=== PATIENT | female | born 1965 | race Hispanic/Latino ===

== ENCOUNTER 2022-06-30 15:23 | Emergency (ER) | payer OTHER, SELFPAY ==
--- NOTE | ~2022-06-30 | CT_ITS ---
EXAMINATION: CT abdomen pelvis w con DATE: 06/30/2022 21:05 INDICATION: RUQ abdominal pain TECHNIQUE: Computed tomography (CT) of the abdomen and pelvis was performed with 100 mL Omnipaque-350 intravenous contrast. Automated exposure control and iterative reconstruction technique were employe d. The dose-length product was 747.64 mGy-cm. COMPARISON: None. FINDINGS: Lower thorax: Unremarkable Liver: Subcentimeter hypodensities that are too small to characterize. Biliary/Gallbladder: Gallbladder is normal. No bile duct dilation. Pancreas: No mass or duct dilation. Spleen: Normal. Adrenals:No mass. Kidneys: Bilateral patchy parenchymal enhancement. Bilateral perinephric stranding and periureteral s tranding. No suspicious mass. No obstructing calculus. GI tract: Mild distal esophageal and gastric wall edema as can be seen with esophagitis/gastritis. No small or large bowel dilation. Normal appendix. Diverticulosis without diverticulitis. Mesentery/Peritoneum: No ascites, mass, or free air. Retroperitoneum: No mass. Atherosclerotic abdominal aortic and/or arterial calcifications. Pelvis: Mild urinary bladder wall thickening. Soft Tissues: Soft tissues and body wall unremarkable. Bones: No acute osseous finding. IMPRESSION: Cystitis with ascending infection and bilateral pyelonephritis. Reviewed, dictated and finalized at location [facility]
[2022-06-30 15:27] VITALS: BP 132/81; PULSE 107; RESP 18; TEMP 37; O2SAT 100
[2022-06-30 17:07] LABS: Basophils Percent Auto 0.3 % (0.2-1.2); Hematocrit 43.4 % (37.0-47.0); Hemoglobin 14.2 g/dL (12.0-15.0); Immature Granulocyte Absolute 0.06 K/mm3 (0.00-0.031); Immature Granulocyte Percent A 0.4 % (0-0.5); Lymphocytes Percent Auto 9.3 % (18.3-44.2); Mean Corpuscular HGB Conc 32.7 g/dl (32-36); Mean Corpuscular Hemoglobin 26.8 pg (26-34); Mean Platelet Volume 9.8 fl (7.4-10.4); Monocytes Absolute Auto 0.9 K/mm3 (0.1-0.6); Monocytes Percent Auto 6.5 % (2.6-8.5); Neutrophils Absolute Auto 11.7 K/mm3 (1.3-6.7); Neutrophils Percent Auto 83.5 % (45.5-73.1); Platelet Count Result 299 k/mm3 (150-375); Red Blood Count 5.29 M/mm3 (4.2-5.4); Red Cell Distribution Width 13.9 % (11.5-14.5)
[2022-06-30 17:20] LABS: Alanine Aminotransferase 94 U/L (6-35); Albumin Level 4.5 g/dL (3.5-5.1); Alkaline Phosphatase 99 U/L (38-126); Anion Gap 16 mmol/L (8-16); Aspartate Amino Transferase 92 U/L (14-36); Bilirubin,Total 0.6 mg/dL (0.2-1.3); Blood Urea Nitrogen 15 mg/dL (7-17); Calcium 9.4 mg/dL (8.4-10.2); Carbon Dioxide 22 mmol/L (22-30); Chloride 95 mmol/L (98-107); Estimated CRCL calculation 79 ml/min; Estimated Glomerular Filt Rate > 60; Glucose 126 mg/dL (65-110); Lipase 44 U/L (23-300); Potassium 4.1 mmol/L (3.4-5.0); Sodium 133 mmol/L (137-145)
--- NOTE | 2022-06-30 20:27 | ED.ABDPAIN ---
HPI - Abdominal Pain General Chief Complaint: Abdominal Pain Stated Complaint: abd pain, fever Time Seen by Provider: 06/30/22 20:18 History of Present Illness HPI narrative: This is a 56-year-old female with past medical history of hypertension and diabetes, presenting the emergency complaining of abdominal pain and fever and chills for the past 4 days. She states pain is dull aggravated by food, alleviated by nothing, beginning in the general abdomen, radiating to the pelvis and worse with pressure to the right upper quadrant. She denies vomiting, diarrhea or bleeding from any source. She has no other complaints today. Related Data Home Medications Medication Instructions Recorded Confirmed cholecalciferol (vitamin D3) 50 50 mcg PO DAILY 06/27/22 mcg (2,000 unit) capsule dapagliflozin 10 mg-metformin ER 1 tablet PO DAILY 06/27/22 1,000 mg tablet,extended release 24hr ezetimibe 10 mg tablet 10 mg PO DAILY 06/27/22 icosapent ethyl 1 gram capsule 2 g PO BID 06/27/22 iron, carbonyl 15 mg chewable 15 mg PO DAILY 06/27/22 tablet rosuvastatin 40 mg tablet 40 mg PO DAILY 06/27/22 semaglutide 0.25 mg or 0.5 mg (2 0.25 mg subcut WEEKLY 06/27/22 mg/1.5 mL) subcutaneous pen injector sertraline 50 mg tablet 50 mg PO DAILY 06/27/22 Allergies Allergy/AdvReac Type Severity Reaction Status Date / Time dulaglutide [From [facility] [address]] Allergy Unknown Verified 06/27/22 08:42 insect venom Allergy Unknown Verified 06/27/22 08:42 Review of Systems Review of Systems: CONSTITUTIONAL: fever, chills, Denies sweats. EYES: Denies visual changes, redness, or discharge. ENT: Denies rhinorrhea, congestion, sore throat, or otalgia. CARDIOVASCULAR: Denies chest pain, palpitations, or edema. RESPIRATORY: Denies cough or dyspnea. GASTROINTESTINAL: Abdominal pain denies nausea, vomiting, or diarrhea. GENITOURINARY: Denies dysuria or hematuria. SKIN: Denies rash or itching. MUSCULOSKELETAL: Denies back pain, joint pain, or myalgia. NEUROLOGIC: Denies headache, numbness, dizziness, or weakness. PSYCHIATRIC: Denies anxiety or depression. 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 HEAD: Normocephalic, atraumatic. EYES: PERRLA and EOMI. ENT: Nares clear, no rhinorrhea or epistaxis. Mucous membranes moist. Oropharynx without tonsillar hypertrophy exudate or other lesions. NECK: Supple. No adenopathy or masses. No carotid bruits or JVD CHEST: Clear to auscultation. No respiratory distress. No wheezes rales or rhonchi HEART: Regular rate and rhythm. No murmur heard. Normal peripheral pulses. ABDOMEN: Soft, tender to palpation in the right upper quadrant without rebound or mass, nondistended, normal active bowel sounds. EXTREMITIES: Normal range of motion. No edema. SKIN: Warm, dry, no rash. NEURO: No foca
[2022-06-30 20:48] VITALS: BP 126/82; PULSE 96; RESP 16; TEMP 36.8
[2022-06-30] MEDS: FAMOTIDINE 20 MG/2 ML VIAL IV PUSH (20:51)
[2022-06-30] MEDS: SODIUM CHLORIDE 0.9% IV 1,000 ML 999 ML IV CONT (20:51)
[2022-06-30 21:05] LABS: Appearance Urine Cloudy (Clear); Bilirubin Urine 1+ (Negative); Blood Urine 2+ (Negative); Color Urine Yellow (Yellow); Glucose Urine UA 3+ mg/dL (Negative); Ketones Urine 3+ mg/dL (Negative); Leukocyte Esterase Ur Trace LEU/UL (Negative); Nitrate Urine Negative (Negative); Protein Urine 3+ mg/dL (Negative); Urobilinogen Urine 0.2 mg/dL (<2.0); pH Urine 5.5 (5.0-9.0)
[2022-06-30 21:23] LABS: Bacteria Urine Trace /hpf; Mucus Urine Rare /lpf; Squamous Epithelial Cell Urine Rare /hpf (Few); WBC Urine >75 /hpf
[2022-06-30 21:25] LABS: Add Urine Microscopic? YES
[2022-06-30 21:30] VITALS: BP 117/72; PULSE 93; RESP 16; TEMP 36.8; O2SAT 95
[2022-06-30 22:30] VITALS: BP 112/69; PULSE 91; RESP 16; TEMP 36.7; O2SAT 100
[2022-06-30] MEDS: cefTRIAXone 2 GM in SODIUM CHLORIDE 0.9% IV 100 ML 200 ML IVPB (22:34)
== END 2022-06-30 23:03 | disposition home or self-care (01) ==
PROVIDERS: Family Medicine; Emergency Provider Preventive Medicine Aerospace Medicine; PCP Family Medicine
DX: N12 Tubulo-interstitial nephritis, not specified as acute or chronic (principal); I10 Essential (primary) hypertension; E11.9 Type 2 diabetes mellitus without complications; E78.5 Hyperlipidemia, unspecified; G47.33 Obstructive sleep apnea (adult) (pediatric); H33.021 Retinal detachment with multiple breaks, right eye; H43.813 Vitreous degeneration, bilateral; Z90.710 Acquired absence of both cervix and uterus; Z79.84 Long term (current) use of oral hypoglycemic drugs; N30.90 Cystitis, unspecified without hematuria
CPT/HCPCS: 36415; 74177; 80053; 81001; 83690; 85025; 87077; 87086; 87186; 96361; 96365; 96367; 96375; 99284; J0131; J0696; J7030; Q9967

== ENCOUNTER 2024-03-09 05:53 | Day surgery (SDC) | payer OTHER, SELFPAY ==
[2024-01-21 09:48] VITALS: BMI 34.4
[2024-02-29 08:32] VITALS: BMI 34.2
[2024-03-09 06:25] VITALS: BP 109/78; PULSE 78; RESP 15; TEMP 36.8; O2SAT 97; BMI 34.4
[2024-03-09 06:46] LABS: Glucose Point of Care 113 mg/dl (65-105)
[2024-03-09] MEDS: LACTATED RINGERS 1,000 ML 150 ML IV CONT (06:46)
--- NOTE | 2024-03-09 07:09 | WPDANESEPPF ---
Anes - Initial Pre Proc Eval Procedure: Operation Date: 03/09/24 07:30 Proposed Procedures p Esophagogastroduodenoscopy - Jose Irizarry MD Date/Time: 03/09/24 07:09 Surgeon: Jose Irizarry MD Pre Op Diagnosis: GERD w/o esophagitis, nausea Patient Data Age: 58 Gender: F Height: 1.57 m Weight: 85.3 kg Last Vital Signs Temp 36.8 C 03/09/24 06:25 Pulse 78 03/09/24 06:25 Resp 15 03/09/24 06:25 BP 109/78 03/09/24 06:25 Pulse Ox 97 03/09/24 06:25 O2 Del Method Room Air 03/09/24 06:25 Allergies Allergy/AdvReac Type Severity Reaction Status Date / Time dulaglutide [From [facility]] Allergy Rash Verified 03/09/24 06:23 insect venom Allergy Rash Verified 03/09/24 06:23 Home Medications Medication Instructions Recorded Confirmed Type cholecalciferol (vitamin D3) 50 50 mcg PO DAILY 06/27/22 03/09/24 History mcg (2,000 unit) capsule ezetimibe 10 mg tablet 10 mg PO DAILY 06/27/22 03/09/24 History icosapent ethyl 1 gram capsule 2 g PO BID 06/27/22 03/09/24 History rosuvastatin 40 mg tablet 40 mg PO DAILY 06/27/22 03/09/24 History metformin 1,000 mg tablet 1,000 mg PO DAILY 10/29/22 03/09/24 History pantoprazole 40 mg tablet,delayed 40 mg PO QAM #30 tabs 01/20/24 03/09/24 Rx release tirzepatide 5 mg/0.5 mL 5 mg subcut WEEKLY 02/29/24 03/09/24 History subcutaneous pen injector (Mounjaro) Laboratory Tests 03/09/24 06:39 POC Capillary Glucose 113 H mg/dl (65-105) Patient hx anesthesia problems: none Family hx anesthesia problems: none Results Review: All pre-operative results and documents have been reviewed as part of the pre-operative evaluation. 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 Sensorineural hearing loss of both ears Type 2 diabetes mellitus Vitreous degeneration of both eyes Surgical History Surgical History H/O breast biopsy H/O: hysterectomy Family History Family History Mother Hypertension Sleep apnea Hyperlipidemia Osteoporosis Coronary artery disease Dementia Father Malignant neoplasm of prostate Diabetes mellitus Social History Social History Smoking status: Never smoker Alcohol intake: current Alcohol use details: social Substance use: never Substance use type: does not use Living arrangements: with family Spiritual care concerns: No Anes - Eval Final PreProcedure Day of Procedure 03/09/24 07:09 Patient weight: obese Heart: regular rate and rhythm Lungs: clear to auscultation Airway: Mallampati scale class II Neurological: alert and oriented Last oral intake: >/= 8 hours ASA classification: III Emergent: no Anesthetic plan: proceed Anesthesia type and monitoring: general GIVS and standard monitoring Results Review: All pre-operative results and documents have been reviewed as part of the pre-operative evaluation. Informed Consent: The patient's anesthetic plan and its attendant risks and benefits were discussed with the patient/family/POA. Questions were solicited and answers provided to the satisfaction of the patient/family/POA.
--- NOTE | 2024-03-09 07:13 | PM.HPGS ---
History of Present Illness History of Present Illness Consent: Risks, benefits, and alternatives have been discussed and questions answered. Patient agrees to proceed with procedure. Chief complaint: GERD w/o esophagitis, nausea Narrative: Silvana Ross is a 58 year old female referred for EGD. Patient complains of ongoing throat pain. She also has had ear pain. ENT evaluation was unremarkable. Previous trial of pantoprazole was of no benefit. Over the last several months she has had some regurgitation. This again was given pantoprazole with some improvement of symptoms. She Has not taken this medication for the last 3 weeks however. Patient referred today for EGD because of the discomfort. 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 Sensorineural hearing loss of both ears Type 2 diabetes mellitus Vitreous degeneration of both eyes Surgical History Surgical History H/O breast biopsy H/O: hysterectomy Family History Family History Mother Hypertension Sleep apnea Hyperlipidemia Osteoporosis Coronary artery disease Dementia Father Malignant neoplasm of prostate Diabetes mellitus Social History Social History Smoking status: Never smoker Alcohol intake: current Alcohol use details: social Substance use: never Substance use type: does not use Living arrangements: with family Spiritual care concerns: No Meds Home Medications and Allergies Home Medications Medication Instructions Recorded Confirmed Type cholecalciferol (vitamin D3) 50 50 mcg PO DAILY 06/27/22 03/09/24 History mcg (2,000 unit) capsule ezetimibe 10 mg tablet 10 mg PO DAILY 06/27/22 03/09/24 History icosapent ethyl 1 gram capsule 2 g PO BID 06/27/22 03/09/24 History rosuvastatin 40 mg tablet 40 mg PO DAILY 06/27/22 03/09/24 History metformin 1,000 mg tablet 1,000 mg PO DAILY 10/29/22 03/09/24 History pantoprazole 40 mg tablet,delayed 40 mg PO QAM #30 tabs 01/20/24 03/09/24 Rx release tirzepatide 5 mg/0.5 mL 5 mg subcut WEEKLY 02/29/24 03/09/24 History subcutaneous pen injector (Eva) Allergies Allergy/AdvReac Type Severity Reaction Status Date / Time dulaglutide [From [facility]] Allergy Rash Verified 03/09/24 06:23 insect venom Allergy Rash Verified 03/09/24 06:23 Vital Signs Vital Signs - 24 hr 03/09/24 06:25 Temperature 98.2 F Pulse Rate 78 Respiratory Rate 15 Blood Pressure 109/78 Pulse Oximetry 97 Oxygen Delivery Room Air Exam Narrative: Physical exam reveals patient to be alert. Vital signs stable. HEENT exam is unremarkable. Patient is anicteric. Lungs are clear to auscultation and to percussion is without murmur or extra sounds. Abdomen bowel sounds are present soft nontender with no organomegaly. Assessment and Plan Assessment and plan (1) Throat pain: Code(s): R07.0 - Pain in throat Status: Acute Assessment and Plan: Patient referred for EGD is of ongoing throat pain. She also notices some nausea and regurgitation. Further recommendations be given after endoscopy. (2) Nausea: Code(s): R11.0 - Nausea Status: Acute Assessment and Plan: Patient with occasional nausea and regurgitation, EGD requested.
[2024-03-09 07:30] VITALS: BP 114/102; PULSE 84; RESP 16; O2SAT 94
[2024-03-09 07:40] VITALS: BP 96/63; PULSE 70; RESP 15; O2SAT 100
[2024-03-09 07:50] VITALS: BP 104/64; PULSE 66; RESP 15; O2SAT 98
--- NOTE | 2024-03-09 07:57 | WPDANESPN ---
Anes - Prog Note Post-Op Date/Time: 03/09/24 07:57 Cardiovascular status: normal Respiratory status: normal Airway patency: baseline Mental status: baseline Post-Op hydration status: normal Vital Signs: Last Vital Signs Temp 36.8 C 03/09/24 06:25 Pulse 66 03/09/24 07:50 Resp 15 03/09/24 07:50 BP 104/64 03/09/24 07:50 Pulse Ox 98 03/09/24 07:50 O2 Del Method Room Air 03/09/24 07:50 Pain Score (VAS): 0/10 I/O: Intake & Output 03/08/24 03/08/24 03/09/24 15:59 23:59 07:59 Intake Total 400 Balance 400 03/09/24 06:39 POC Capillary Glucose 113 H Patient Feedback: Patient satisfied with anesthetic care.
== END 2024-03-09 07:56 | disposition home or self-care (01) ==
PROVIDERS: PCP Family Medicine; Visit Provider Internal Medicine Gastroenterology
PROC: 0DJ08ZZ Inspection of Upper Intestinal Tract, Via Natural or Artificial Opening Endoscopic (ICD-10-PCS; CPT 43235; principal; 2024-03-09 07:30)
DX: R11.0 Nausea (principal); K21.9 Gastro-esophageal reflux disease without esophagitis
CPT/HCPCS: 43239